=== PATIENT | male | born 1975 | race African-American/Black ===

== ENCOUNTER 2019-04-02 20:29 | Emergency (ER) | payer OTHER ==
[~2019-04-02] VITALS: Ht 190.5 cm; Wt 122.7 kg
[2019-04-02 21:21] VITALS: BP 138/84
== END 2019-04-02 21:21 | DRG 914 ==
LOC: ED 20:29
DX: S68.622A Partial traumatic transphalangeal amputation of right middle finger, initial encounter (principal); W23.1XXA Caught, crushed, jammed, or pinched between stationary objects, initial encounter; Y92.149 Unspecified place in prison as the place of occurrence of the external cause